=== PATIENT | female | born 1985 | race Caucasian/White ===

== ENCOUNTER 2017-07-13 20:35 | Emergency (ER) | payer OTHER ==
[~2017-07-13] VITALS: Ht 172.7 cm; Wt 75.9 kg
[2017-07-13 20:38] VITALS: BP 148/96
[2017-07-13] MEDS ORDERED: PROPARACAINE OPHTH 0.5%, 15ML ONE (23:50)
[2017-07-13] MEDS ORDERED: FLUORESCEIN OPHTHALMIC 1 MG STRIP ONE (23:50)
== END 2017-07-14 00:24 | disposition left against medical advice (07) ==
LOC: ED 07-14 00:18
DX: H57.13 Ocular pain, bilateral (principal); Z53.21 Procedure and treatment not carried out due to patient leaving prior to being seen by health care provider